=== PATIENT | female | born 2000 | race Two or more races ===

== ENCOUNTER 2024-08-20 10:31 | Emergency (ER) | payer OTHER ==
[~2024-08-20] VITALS: Ht 167.6 cm; Wt 60.3 kg
[2024-08-20] MEDS ORDERED: HYDROCODONE/CHLORPHEN P-STIREX 5 ML ML PO STA ×2 (11:58→12:00)
[2024-08-20 12:20] LABS: ABG PH 7.477 (7.35-7.45); ABG PO2 115.1 mmHg (80-100); ABG pCO2 28.2 mmHg (35-45); BASE EXCESS -1.7 mmol/l; BICARBONATE 20.4 mmol/l (23-25); SaO2 98.8 %; Tco2 21.3 mmol/l
[2024-08-20 12:57] LABS: allen test SATISFACTORY; o2 21 %; puncture site RADIAL LEFT
== END 2024-08-20 14:22 | disposition home or self-care (01) ==
LOC: ER 10:34
PROVIDERS: General Practice
DX: R05.9 Cough, unspecified (principal); Z88.2 Allergy status to sulfonamides; Z88.8 Allergy status to other drugs, medicaments and biological substances; Z91.018 Allergy to other foods